=== PATIENT | male | born 2000 | race Two or more races ===

== ENCOUNTER 2025-05-20 21:26 | Emergency (ER) | payer BC ==
[~2025-05-20] VITALS: Ht 167.6 cm; Wt 81.0 kg
[2025-05-20 21:32] VITALS: BP 147/81; PULSE 58; RESP 15; TEMP 98.6; O2SAT 97
--- NOTE | 2025-05-20 22:10 | Physician Documentation ---
History of Present Illness ~ Chief Complaint: Sore Throat Stated Complaint: STREP Time Seen by MD: 21:34 OK to notify your PCP?: Yes Source: patient Mode of Arrival: POV Exam Limitations: no limitations HPI This is a 25-year-old male who comes in complaining of sore throat. The patient states he has had strep throat 4 times this year and believes he has a once again. He denies inability to handle his own secretions, food or fluid. He denies fever or chills. Medication Reconciliation Allergies: Coded Allergies: No Known Allergies (Unverified , 05/20/25) Physical Exam Vital Signs: Temperature: 98.6, Source: Temporal, Heart Rate: 58, Respiratory Rate: 15, BP: 147/81, Pulse Oximetry: 97, Weight: 81.000 General Appearance: alert, WD/WN, no apparent distress Mouth/Throat Negative for trismus or muffled voice. To inspection of the oropharynx very mild erythema but no edema or exudates. No unilateral pharyngeal fullness uvula shift or kissing tonsils. No cervical lymphadenopathy. Progress Results/Orders Results/Orders Orders - JERILYN MCKEON Cult Throat + R/O Beta Strep (05/20/25 22:30) Completed Orders - JERILYN MCKEON Strep A Rapid (05/20/25 21:35) Vital Signs 05/20/25 21:32 Temp 98.6 Pulse 58 Resp 15 B/P (MAP) 147/81 Pulse Ox 97 Laboratory Tests Test 05/20/25 21:36 Group A Streptococcus Rapid Negative Medical Decision Making Additional information obtaine: N/A Findings Rapid strep was negative. The patient states he has a runny nose so I suspect his symptoms are secondary to postnasal drip. I instructed him view use decongestants to help with the runny nose and sore throat sprays and lozenges for sore throat relief. Follow up with the primary care physician for recheck in the next one or two days and return to the ER for any worsening or concerning symptoms Ear Diff. Dx: Considerations: Include: Abrasion, Cerumen impaction, Foreign body, Otitis externa, Barotrauma, Otitis media, Perforation, Referred pain- dental, Referred pain-pharyngitis, Referred pain-sinusitis, Referred pain-TMJ syn., Tympanic Membrane Injury, Other Eye Diff. Dx: Considerations: Include: Chalazoin, Conjuctivits-allergic, Conjuctivitis-bacterial, Conjuctivits-chlamydial, Conjuctivitis-viral, Corneal abrasion, Corneal laceration, Corneal ulceration, Foreign body-conjuctiva, Foreign body-corneal, Foreign body-intraocular, Foreign body-lid, Glaucoma, Globe rupture, Hordeolum, Iritis, Orbital cellulitis, Periobital cellulitis, Retinal artery occulsion, Retinal vein occlusion, Rust ring, Subconjunctival hem, Ultraviolet keratitis, Uveitis, Vitreous hemorrhage, Other Nose Diff. Dx: Considerations: Include: Abrasion, Anterior nasal bleed, Avulsion, Contusion, Coagulopathy, Fracture-nasal bone, Fracture-septum, Hypertension, Laceration, Other, Posterior nasal bleed, Retained foreign body, Septal hematoma Tooth Diff. Dx: Considerations: Include: Alveolar fracture, Aveolar osteitis, ANUG, Facial cellulitis, Periapical abscess, Periodontal abscess, Post- extraction bleeding, Pulpitis, Trigeminal neuralgia, Tooth-avulsion, Tooth- eruption, Tooth-fracture, Tooth-subluxation, Other Throat Diff Dx: Considerations: Include: AIDS, Epiglottitis, Esophageal candidiasis, Hand foot mouth disease, Herpangina, Herpetic stomatitis, Herpes simplex, Infection mononucleosis, Immunodeficiency, Rocky's angina, Peritonsillar abscess, Peritonsillar cellulitis, Pharyngitis-diphtheria, Pharyngitis-strepococcal, Pharyngitis-viral, Thrush, URI, Other Additional Comment Pharyngitis. Tonsillitis. Strep throat. Mononucleosis. Departure Disposition: HOME / SELF CARE / HOMELESS Impression: Primary Impression: Pharyngitis Condition: Stable Discharge Instructions: Pharyngitis Additional Instructions: Warm saltwater gargles and [id number] sore throat sprays and lozenges. Follow up with the primary care physician for recheck in the next one or two days and return to the ER for any worsening or concerning symptoms Referrals: NO PRIMARY CARE PROVIDER (PCP) Signature Scribe Signature: No scribe Attestation: The note accurately reflects work and decisions made by me.Jerilyn MORAN 05/20/25 23:23 JERILYN MCKEON May 20, 2025 22:10
[2025-05-20 22:30] LABS: STREP A SCREEN NEGATIVE (Neg)
== END 2025-05-20 23:37 | disposition home or self-care (01) ==
LOC: ER 21:27
DX: J02.9 Acute pharyngitis, unspecified (principal)
CPT/HCPCS: 87081; 87880; 99283